=== PATIENT | female | born 1980 | race Caucasian/White ===

== ENCOUNTER 2020-04-28 08:39 | Outpatient (CLI) | payer OTHER ==
[2020-04-28 16:37] LABS: SARS-CoV-2 MS2 Positive; SARS-CoV-2 N Gene Negative; SARS-CoV-2 S Gene Negative; SARS-CoV-2 by NAA Not Detected (NotDetected); SARS-CoV-2 orf1ab Negative
== END 2020-04-28 08:40 | disposition home or self-care (01) ==
LOC: LABBT 08:39
PROVIDERS: ATTEND Specialist
DX: R13.10 Dysphagia, unspecified (principal); Z20.828 Contact with and (suspected) exposure to other viral communicable diseases
CPT/HCPCS: 87635; U0003

== ENCOUNTER 2024-01-02 07:06 | Day surgery (SDC) | payer OTHER ==
[2023-12-30 10:42] VITALS: BMI 24.3
[2024-01-02] MEDS ORDERED: CEFAZOLIN 2 GM VIAL ONE (08:10)
[2024-01-02] MEDS ORDERED: Scopolamine 1 mg/72 hour Patch ONE (08:10)
[2024-01-02] MEDS ORDERED: Sodium Chloride 0.9% 100 ML ONE (08:11)
[2024-01-02 08:16] LABS: #Basophils 0.05 10x3/uL (0.0-0.2); %Basophils 0.6 % (0.0-1.0); %Eosinophils 1.3 % (0.0-10.0); %Lymphocytes 22.8 % (21.0-51.0); %Monocytes 8.6 % (0.0-10.0); %Neutrophils 66.1 % (42.0-75.0); Hemoglobin 13.5 g/dL (12.0-16.0); Mean Corpuscular HGB CONC 33.8 g/dL (32.0-36.0); Mean Corpuscular Hemoglobin 29.8 pg (27.0-31.0); Mean Corpuscular Volume 88.3 fL (78.0-98.0); Mean Platelet Volume 9.1 fL (7.4-10.4); Platelet Count 326 10x3/uL (130-400); Red Blood Cell (RBC) Count 4.53 mill/uL (4.20-5.40)
[2024-01-02 08:38] LABS: Anion Gap 12 mmol/L (10-20); BUN (Urea Nitrogen) 17 mg/dL (7.0-18.7); Calc. Creatinine Clearance 121 mL/min (70-130); Carbon Dioxide 24 mmol/L (22-29); Chloride 104 mmol/L (98-107); Estimated GFR 110; Glucose 106 mg/dL (70-105); Potassium 4.2 mmol/L (3.5-5.1); Sodium 136 mmol/L (136-145)
[2024-01-02] MEDS ORDERED: Rocuronium Bromide 10 MG/ML (10ML VIAL) ONE (08:39)
[2024-01-02] MEDS ORDERED: Lidocaine 1% PF 5 ML VIAL ONE (08:39)
[2024-01-02] MEDS ORDERED: PROPOFOL 20 ML ONE (08:39)
[2024-01-02] MEDS ORDERED: fentaNYL PF 100 MCG/2 ML SYRINGE ONE (08:39)
[2024-01-02] MEDS ORDERED: Vancomycin 1 GM VIAL ONE (09:54)
[2024-01-02] MEDS ORDERED: Ketorolac Tromethamine 30 MG (1 mL) VIAL ONE (10:07)
[2024-01-02] MEDS ORDERED: Dexamethasone 20 MG/5 ML VIAL ONE (10:07)
[2024-01-02] MEDS ORDERED: Ondansetron PF 4 MG/2 ML Vial ONE ×2 (10:07→13:20)
[2024-01-02] MEDS ORDERED: HYDROmorphone 2 MG/ML VIAL ONE (10:17)
[2024-01-02] MEDS ORDERED: SUGAMMADEX SODIUM 200 MG/2 ML VIAL ONE (10:23)
[2024-01-02] MEDS ORDERED: Lidocaine 2% PF 5 ML VIAL ONE (10:33)
[2024-01-02] MEDS ORDERED: fentaNYL 50 mcg/mL 1 mL Vial ONE ×4 (11:08→12:34)
[2024-01-02] MEDS ORDERED: Morphine 4 MG/ML VIAL ONE (11:53)
[2024-01-02] MEDS ORDERED: HYDROcodone/Acetaminophen 5/325 mg Tablet ONE (13:12)
[2024-01-02] MEDS ORDERED: Promethazine HCl 25 MG/ML VIAL ONE (14:50)
== END 2024-01-02 15:57 | disposition home or self-care (01) ==
LOC: SDC 07:06
PROVIDERS: ATTEND Neurological Surgery
PROC: 0SB40ZZ Excision of Lumbosacral Disc, Open Approach (ICD-10-PCS; principal; 2024-01-02)
DX: M54.16 Radiculopathy, lumbar region (principal)
CPT/HCPCS: 80048; 85025; 93005; 93010; C1713; J1100; J1170; J1885; J2001; J2270; J2405; J2550; J2704; J3010; J3370; J3490

== ENCOUNTER 2024-08-06 17:58 | Inpatient (IN) | payer OTHER ==
[~2024-08-06 17:58] MED LIST: Iopamidol-370 76% 500 ML MDV (1 ML CHARGE) ONE
[2024-08-06 18:23] LABS: #Basophils 0.05 10x3/uL (0.0-0.2); %Basophils 0.6 % (0.0-1.0); %Eosinophils 1.2 % (0.0-10.0); %Lymphocytes 32.2 % (21.0-51.0); %Monocytes 7.6 % (0.0-10.0); %Neutrophils 58.2 % (42.0-75.0); Hematocrit 46.1 % (36.0-47.0); Hemoglobin 15.1 g/dL (12.0-16.0); Mean Corpuscular HGB CONC 32.8 g/dL (32.0-36.0); Mean Corpuscular Hemoglobin 28.5 pg (27.0-31.0); Mean Platelet Volume 9.1 fL (7.4-10.4); Platelet Count 423 10x3/uL (130-400); RBC Distribution Width 12.6 % (11.5-14.5)
[2024-08-06 18:41] LABS: ALT (SGPT) 18 U/L (Less than 34); AST (SGOT) 18 U/L (11-34); Albumin 3.9 g/dL (3.1-4.5); Alkaline Phosphatase 74 U/L (40-110); Anion Gap 9 mmol/L (10-20); BUN (Urea Nitrogen) 15 mg/dL (7.0-18.7); Bilirubin, Total 0.5 mg/dL (0.3-1.2); Calc. Creatinine Clearance 0 mL/min (70-130); Calcium 9.2 mg/dL (7.8-10.44); Carbon Dioxide 24 mmol/L (22-29); Chloride 105 mmol/L (98-107); Estimated GFR 100; Globulin 3.6 g/dL (2.4-3.5); Glucose 100 mg/dL (70-105); Potassium 4.4 mmol/L (3.5-5.1); Protein, Total 7.5 g/dL (6.0-8.3); Sodium 134 mmol/L (136-145)
[2024-08-06 18:43] LABS: PTT 36.9 sec (22.9-36.1); Prothrombin Time 12.6 sec (12.0-14.7)
[2024-08-06 18:47] LABS: Troponin I 0.018 ng/mL (< 0.028)
[2024-08-06 19:33] LABS: Magnesium 2.1 mg/dL (1.6-2.6)
[2024-08-06 19:34] LABS: BHCG - Serum Negative (NEGATIVE); Pregs Control Background? CLEAR/WHITE (CLR/WHITE); Pregs Control Bar Appear? YES (CONTROL BAR)
[2024-08-06] MEDS ORDERED: Metoprolol Tartrate 5 MG (5 mL) VIAL ONE (21:20)
[2024-08-06] MEDS ORDERED: Acetaminophen 325 MG TAB PO PRN (22:43)
[2024-08-06] MEDS ORDERED: Ondansetron PF 4 MG/2 ML Vial IVP PRN (22:43)
[2024-08-06] MEDS ORDERED: Enoxaparin 80 MG (0.8 mL) SYRINGE ONE (23:56)
[2024-08-07] MEDS: Metoprolol Tartrate 25 MG TAB PO SCH ×2 (00:41→10:10)
[2024-08-07 00:51] VITALS: BMI 24.4
[2024-08-07 05:29] LABS: #Basophils 0.05 10x3/uL (0.0-0.2); %Basophils 0.5 % (0.0-1.0); %Eosinophils 1.4 % (0.0-10.0); %Lymphocytes 35.4 % (21.0-51.0); %Monocytes 6.7 % (0.0-10.0); %Neutrophils 55.8 % (42.0-75.0); Hematocrit 39.5 % (36.0-47.0); Hemoglobin 12.8 g/dL (12.0-16.0); Mean Corpuscular HGB CONC 32.4 g/dL (32.0-36.0); Mean Corpuscular Hemoglobin 28.6 pg (27.0-31.0); Mean Corpuscular Volume 88.2 fL (78.0-98.0); Mean Platelet Volume 9.4 fL (7.4-10.4); Platelet Count 296 10x3/uL (130-400); RBC Distribution Width 12.8 % (11.5-14.5); Red Blood Cell (RBC) Count 4.48 mill/uL (4.20-5.40)
[2024-08-07 06:06] LABS: Anion Gap 9 mmol/L (10-20); BUN (Urea Nitrogen) 11 mg/dL (7.0-18.7); Calc. Creatinine Clearance 108 mL/min (70-130); Calcium 8.4 mg/dL (7.8-10.44); Carbon Dioxide 23 mmol/L (22-29); Cardiac Risk 5.7 (Less than 4.5); Chloride 111 mmol/L (98-107); Cholesterol 189 mg/dl (< 200 Desired); Estimated GFR 98; Glucose 129 mg/dL (70-105); HDL Cholesterol 33 mg/dL (>60 Neg Risk); LDL Cholesterol, Calculated 130 mg/dL; Magnesium 1.9 mg/dL (1.6-2.6); Potassium 3.9 mmol/L (3.5-5.1); Sodium 139 mmol/L (136-145); Triglycerides 129 mg/dL (Less than 150)
[2024-08-07] MEDS: Aspirin 81 mg Enteric Coated Tablet PO SCH (10:10)
[2024-08-07] MEDS: Enoxaparin 40 MG (0.4 mL) SYRINGE SC SCH (10:10)
[2024-08-07] MEDS: Pantoprazole 40 MG DR.TAB PO SCH (10:15)
[2024-08-07] MEDS ORDERED: Enoxaparin 60 MG (0.6 mL) SYRINGE SC SCH (11:00)
[2024-08-07] MEDS ORDERED: Flecainide 50 MG TAB PO SCH ×2 (12:30→21:00)
[2024-08-07] MEDS: Flecainide 50 MG TAB PO SCH ×2 (16:16→20:11)
[2024-08-08 04:37] VITALS: TEMP 98
[2024-08-08 06:01] LABS: Chloride 109 mmol/L (98-107); Sodium 138 mmol/L (136-145)
[2024-08-08 06:02] LABS: Calcium 8.6 mg/dL (7.8-10.44); Glucose 105 mg/dL (70-105)
[2024-08-08 06:04] LABS: Anion Gap 11 mmol/L (10-20); Carbon Dioxide 22 mmol/L (22-29)
[2024-08-08 06:06] LABS: Calc. Creatinine Clearance 122 mL/min (70-130); Estimated GFR 110
[2024-08-08 06:07] LABS: BUN (Urea Nitrogen) 11 mg/dL (7.0-18.7)
[2024-08-08 08:54] VITALS: BP 111/66
== END 2024-08-08 11:21 | disposition home or self-care (01) | DRG 310 ==
LOC: ERS 17:58 → OBS 08-07 00:35 → INTOOBSV 08-07 00:35 → OBSVTOIN 08-07 12:50
PROVIDERS: ADMIT Internal Medicine; ATTEND Internal Medicine
DX: I48.91 Unspecified atrial fibrillation (principal); H53.8 Other visual disturbances; K21.9 Gastro-esophageal reflux disease without esophagitis; E78.5 Hyperlipidemia, unspecified; Z98.890 Other specified postprocedural states
CPT/HCPCS: 36415; 70450; 71045; 71275; 80048; 80053; 80061; 82533; 83735; 83880; 84443; 84484; 84703; 85025; 85610; 85730; 93005; 93010; 93306; 96361; 96372; 96374; G0378; J1650; Q9967

== ENCOUNTER 2025-02-20 14:20 | Observation (INO) | payer OTHER ==
[2025-02-20] MEDS ORDERED: Acetaminophen 325 MG TAB PO PRN (14:49)
[2025-02-20] MEDS ORDERED: Dextrose 50% Abboject 50 ML SYRINGE SLOW IVP PRN (14:49)
[2025-02-20] MEDS ORDERED: Glucagon 1 MG/ML KIT IM PRN (14:49)
[2025-02-20 14:54] VITALS: BMI 25.5
[2025-02-20] MEDS: Ondansetron PF 4 MG/2 ML Vial IVP PRN (15:40)
[2025-02-21 06:46] LABS: #Basophils 0.03 10x3/uL (0.0-0.2); #Eosinophils 0.11 10x3/uL (0.0-0.7); #Monocytes 0.50 10x3/uL (0.11-0.59); #Neutrophils 4.77 10x3/uL (1.40-6.50); %Basophils 0.4 % (0.0-1.0); %Eosinophils 1.5 % (0.0-10.0); %Lymphocytes 24.7 % (21.0-51.0); %Monocytes 6.9 % (0.0-10.0); %Neutrophils 66.2 % (42.0-75.0); Hematocrit 36.7 % (36.0-47.0); Hemoglobin 11.5 g/dL (12.0-16.0); Mean Corpuscular Hemoglobin 28.0 pg (27.0-31.0); Mean Corpuscular Volume 89.5 fL (78.0-98.0); Platelet Count 237 10x3/uL (130-400); Red Blood Cell (RBC) Count 4.10 mill/uL (4.20-5.40); White Blood Cell (WBC) Count 7.21 10x3/uL (4.8-10.8)
[2025-02-21 07:09] LABS: Anion Gap 8 mmol/L (10-20); BUN (Urea Nitrogen) 8 mg/dL (7.0-18.7); Calc. Creatinine Clearance 121 mL/min (70-130); Calcium 7.7 mg/dL (7.8-10.44); Carbon Dioxide 24 mmol/L (22-29); Chloride 109 mmol/L (98-107); Glucose 102 mg/dL (70-105); Potassium 3.4 mmol/L (3.5-5.1); Sodium 138 mmol/L (136-145)
[2025-02-21] MEDS: Pantoprazole 40 MG DR.TAB PO SCH (08:40)
[2025-02-21] MEDS: Metoprolol Succinate XL 25 MG ER.TAB PO SCH (08:48)
[2025-02-21 09:28] VITALS: BP 108/69; TEMP 97.8
[2025-02-21] MEDS ORDERED: Metoprolol Succinate XL 25 MG ER.TAB PO SCH (21:00)
== END 2025-02-21 11:58 | disposition home or self-care (01) ==
LOC: SURG B 14:20 → INTOOBSV 14:20
PROVIDERS: ADMIT Colon & Rectal Surgery; ATTEND Colon & Rectal Surgery
DX: K56.600 Partial intestinal obstruction, unspecified as to cause (principal); K21.9 Gastro-esophageal reflux disease without esophagitis; E78.5 Hyperlipidemia, unspecified; I48.0 Paroxysmal atrial fibrillation; Z79.01 Long term (current) use of anticoagulants; Z79.82 Long term (current) use of aspirin; Z79.899 Other long term (current) drug therapy
CPT/HCPCS: 36415; 74018; 80048; 85025; J2270; J2405; J7030

== ENCOUNTER 2025-03-08 14:19 | Outpatient (CLI) | payer OTHER ==
[2025-03-08 15:35] LABS: INR-International Normal Ratio 1.7; Prothrombin Time 19.9 sec (12.0-14.7)
[2025-03-08 15:36] LABS: PTT 74.9 sec (22.9-36.1)
[2025-03-08 16:13] LABS: BHCG - Serum Negative (NEGATIVE); Pregs Control Background? CLEAR/WHITE (CLR/WHITE); Pregs Control Bar Appear? YES (CONTROL BAR)
== END 2025-03-08 14:20 | disposition home or self-care (01) ==
LOC: LABBT 14:19
PROVIDERS: ATTEND Internal Medicine Cardiovascular Disease
DX: Z01.818 Encounter for other preprocedural examination (principal); I48.0 Paroxysmal atrial fibrillation
CPT/HCPCS: 84703; 85610; 85730; 93005; 93010

== ENCOUNTER 2025-03-12 06:09 | Day surgery (SDC) | payer OTHER ==
[2025-03-08 14:31] VITALS: BMI 25.0
[2025-03-08 15:22] LABS: #Basophils 0.03 10x3/uL (0.0-0.2); #Eosinophils 0.10 10x3/uL (0.0-0.7); #Monocytes 0.39 10x3/uL (0.11-0.59); #Neutrophils 2.62 10x3/uL (1.40-6.50); %Basophils 0.6 % (0.0-1.0); %Eosinophils 1.9 % (0.0-10.0); %Lymphocytes 39.0 % (21.0-51.0); %Monocytes 7.6 % (0.0-10.0); %Neutrophils 50.7 % (42.0-75.0); Hematocrit 38.2 % (36.0-47.0); Hemoglobin 12.2 g/dL (12.0-16.0); Mean Corpuscular Hemoglobin 28.1 pg (27.0-31.0); Mean Corpuscular Volume 88.0 fL (78.0-98.0); Platelet Count 371 10x3/uL (130-400); Red Blood Cell (RBC) Count 4.34 mill/uL (4.20-5.40); White Blood Cell (WBC) Count 5.16 10x3/uL (4.8-10.8)
[2025-03-08 15:38] LABS: ALT (SGPT) 17 U/L (Less than 34); AST (SGOT) 20 U/L (11-34); Albumin 4.2 g/dL (3.1-4.5); Alkaline Phosphatase 74 U/L (40-110); Anion Gap 13 mmol/L (10-20); BUN (Urea Nitrogen) 9 mg/dL (7.0-18.7); Bilirubin, Total 0.4 mg/dL (0.3-1.2); Calc. Creatinine Clearance 0 mL/min (70-130); Calcium 9.0 mg/dL (7.8-10.44); Carbon Dioxide 23 mmol/L (22-29); Chloride 104 mmol/L (98-107); Globulin 3.1 g/dL (2.4-3.5); Glucose 113 mg/dL (70-105); Potassium 3.8 mmol/L (3.5-5.1); Sodium 136 mmol/L (136-145)
[2025-03-10 12:09] LABS: Myoglobin, Serum 29.0 ng/mL (25-58)
[2025-03-12] MEDS ORDERED: Heparin 10,000 UNITS/ 10 ML VIAL ONE (06:51)
[2025-03-12] MEDS ORDERED: Isoproterenol 0.2 MG/1 ML AMP ONE ×2 (06:52→07:35)
[2025-03-12] MEDS ORDERED: fentaNYL PF 100 MCG/2 ML SYRINGE ONE (07:54)
[2025-03-12] MEDS ORDERED: SUGAMMADEX SODIUM 200 MG/2 ML VIAL ONE (08:10)
[2025-03-12] MEDS ORDERED: PROPOFOL 200 MG/20 ML VIAL ONE (08:21)
[2025-03-12] MEDS ORDERED: Glycopyrrolate 0.2 MG/ML 5 ML SYRINGE ONE (08:21)
[2025-03-12] MEDS ORDERED: Rocuronium Bromide 10 MG/ML (10ML VIAL) ONE (08:21)
[2025-03-12] MEDS ORDERED: Phenylephrine 40 MG/NS 250 ML 250 ML ONE (09:29)
[2025-03-12] MEDS ORDERED: Ondansetron PF 4 MG/2 ML Vial ONE (10:48)
[2025-03-13 12:14] LABS: Hemoglobin,Free - Plasma 3.7 mg/dL (0.0-4.9)
== END 2025-03-12 14:45 | disposition home or self-care (01) ==
LOC: SDC 06:09
PROVIDERS: ATTEND Internal Medicine Cardiovascular Disease
DX: I48.0 Paroxysmal atrial fibrillation (principal); Z88.5 Allergy status to narcotic agent; Z79.01 Long term (current) use of anticoagulants
CPT/HCPCS: 80053; 83010; 83051; 83874; 85025; 85347; 86850; 86900; 86901; 93005; 93010; 93623; 93656; 93657; C1730; C1733; C1759; C1760; C1766; C1769; C1893; C1894; J1100; J1644; J2250; J2405; J2704; J2720